=== PATIENT | female | born 1980 | race Two or more races ===

== ENCOUNTER → 2024-03-30 | Outpatient (CLI) | payer BC | END | disposition home or self-care (01) | LOC: XYW 09:53 | PROVIDERS: ATTEND Student in an Organized Health Care Education/Training Program | DX: I51.89 Other ill-defined heart diseases (principal); R06.02 Shortness of breath | CPT/HCPCS: 93306 ==

== ENCOUNTER 2024-07-09 12:27 | Emergency (ER) | payer BC ==
[2024-07-09 13:39] LABS: Urine Bacteria None Seen /hpf (None Seen)
[2024-07-09 13:49] LABS: Basophils # (auto) 0 10 ^3/uL (0-0.2); Basophils % (auto) 0.7 % (0.0-2.0); Eosinophils # (auto) 0.1 10 ^3/uL (0-0.8); Eosinophils % (auto) 1.7 % (0.0-7.0); Hematocrit 39.8 % (36.0-46.0); Hemoglobin 13.5 g/dL (12.2-16.2); Lymphocytes # (auto) 2.3 10 ^3/uL (0.4-5.4); Mean Corpuscular Hemoglobin 31.4 pg (28.0-32.0); Mean Corpuscular Volume 92.6 fL (80.0-100.0); Monocytes # (auto) 0.3 10 ^3/uL (0-1.3); Monocytes % (auto) 6.3 % (0.0-12.0); Neutrophils # (auto) 2.6 10 ^3/uL (1.6-8.6); Neutrophils % (auto) 48.3 % (37.0-80.0); Nucleated Red Blood Cells % 0.1 %; Platelet Count (auto) 197 10^3/uL (140-450); Red Cell Distribution Width 13.7 % (11.8-14.3); White Blood Cell 5.4 10^3/uL (4.4-10.8)
[2024-07-09 14:06] LABS: Chloride 105 mmol/L (98-107); Potassium 4.2 mmol/L (3.5-5.1); Sodium 139 mmol/L (136-145)
[2024-07-09 14:07] LABS: Anion Gap 5 (5-15); Carbon Dioxide 29 mmol/L (20-30)
[2024-07-09 14:08] LABS: Calcium 9.6 mg/dL (8.7-10.4)
[2024-07-09 14:12] LABS: BUN/Creatinine Ratio 17.1 (10.0-20.0); Blood Urea Nitrogen 13 mg/dL (9-23); Glucose 93 mg/dL (74-106)
[2024-07-09 14:14] LABS: Urine Blood Negative /uL (Negative); Urine Clarity Clear (Clear); Urine Color Yellow (Yellow); Urine Protein, UAD Negative (Negative); Urine Urobilinogen Normal (Negative); Urine WBC <1 /hpf (0 - 5); Urine pH 6.5 (5.0-9.0)
[2024-07-09 17:00] VITALS: BP 112/65; PULSE 78; RESP 16; TEMP 98.3; O2SAT 100
== END 2024-07-09 17:08 | disposition home or self-care (01) ==
LOC: ER 12:27
DX: N93.9 Abnormal uterine and vaginal bleeding, unspecified (principal); R10.2 Pelvic and perineal pain; Z90.49 Acquired absence of other specified parts of digestive tract
CPT/HCPCS: 36415; 76830; 76856; 80048; 81001; 84702; 85025; 86850; 86900; 86901

== ENCOUNTER → 2024-08-03 | Outpatient (CLI) | payer BC ==
[2024-08-03 11:48] LABS: Basophils # (auto) 0 10 ^3/uL (0-0.2); Basophils % (auto) 0.6 % (0.0-2.0); Eosinophils # (auto) 0.1 10 ^3/uL (0-0.8); Eosinophils % (auto) 2.6 % (0.0-7.0); Hematocrit 38.5 % (36.0-46.0); Hemoglobin 12.9 g/dL (12.2-16.2); Lymphocytes # (auto) 1.9 10 ^3/uL (0.4-5.4); Lymphocytes % (auto) 39.2 % (10.0-50.0); Mean Corpuscular Hemoglobin 31.6 pg (28.0-32.0); Mean Corpuscular Hgb Conc. 33.5 g/dL (32.0-36.0); Mean Corpuscular Volume 94.5 fL (80.0-100.0); Monocytes # (auto) 0.3 10 ^3/uL (0-1.3); Monocytes % (auto) 6.9 % (0.0-12.0); Neutrophils # (auto) 2.4 10 ^3/uL (1.6-8.6); Neutrophils % (auto) 50.7 % (37.0-80.0); Platelet Count (auto) 213 10^3/uL (140-450); Red Blood Cells 4.07 10^6/uL (4.0-5.20); White Blood Cell 4.8 10^3/uL (4.4-10.8)
[2024-08-03 12:47] LABS: Alanine Aminotransferase 15 U/L (7-40); Alkaline Phosphatase 69 U/L (46-116); Anion Gap 6 (5-15); BUN/Creatinine Ratio 21.5 (10.0-20.0); Beta HCG, Quantitative 0.6 mIU/mL (1.5-4.2); Blood Urea Nitrogen 17 mg/dL (9-23); Calcium 9.6 mg/dL (8.7-10.4); Carbon Dioxide 27 mmol/L (20-31); Chloride 108 mmol/L (98-107); Glucose 86 mg/dL (74-106); Potassium 4.1 mmol/L (3.5-5.1); Sodium 141 mmol/L (136-145)
[2024-08-03 12:48] LABS: Albumin 4.4 g/dL (3.2-4.8); Aspartate Aminotransferase 9 U/L (13-40); Bilirubin, Total 0.3 mg/dL (0.2-1.0)
[2024-08-03 12:50] LABS: Thyroid Stimulating Hormone 1.91 uIU/mL (0.55-4.78)
[2024-08-03 13:14] LABS: Follicle Stimulating Hormone 21.1 IU/L (SEE BELOW); Free T4 (Free Thyroxine) 1.02 ng/dL (0.89-1.76); Leuteinizing Hormone 6.8 IU/L
[2024-08-04 08:07] LABS: Estradiol 66.2 pg/mL (.); Insulin 5.8 uIU/mL (2.6-24.9); Sex Hormone Binding Globulin 66.4 nmol/L (24.6-122.0); Testosterone <3 ng/dL (4-50)
== END | disposition home or self-care (01) ==
LOC: LAB 11:17
PROVIDERS: ATTEND Obstetrics & Gynecology
DX: E28.2 Polycystic ovarian syndrome (principal); Z87.42 Personal history of other diseases of the female genital tract
CPT/HCPCS: 36415; 80053; 82626; 82670; 83001; 83002; 83036; 83525; 84146; 84270; 84402; 84403; 84439; 84443; 84702; 85025

== ENCOUNTER 2024-09-14 09:07 | Day surgery (SDC) | payer BC ==
[2024-09-10 11:12] LABS: Basophils # (auto) 0 10 ^3/uL (0-0.2); Basophils % (auto) 0.5 % (0.0-2.0); Eosinophils # (auto) 0.1 10 ^3/uL (0-0.8); Eosinophils % (auto) 1.7 % (0.0-7.0); Hematocrit 39.3 % (36.0-46.0); Hemoglobin 13.3 g/dL (12.2-16.2); Lymphocytes # (auto) 2.4 10 ^3/uL (0.4-5.4); Lymphocytes % (auto) 47.9 % (10.0-50.0); Mean Corpuscular Hemoglobin 31.2 pg (28.0-32.0); Mean Corpuscular Hgb Conc. 33.7 g/dL (32.0-36.0); Mean Corpuscular Volume 92.5 fL (80.0-100.0); Monocytes # (auto) 0.4 10 ^3/uL (0-1.3); Monocytes % (auto) 7.3 % (0.0-12.0); Neutrophils # (auto) 2.1 10 ^3/uL (1.6-8.6); Neutrophils % (auto) 42.6 % (37.0-80.0); Nucleated Red Blood Cells % 0.2 %; Platelet Count (auto) 245 10^3/uL (140-450); Red Blood Cells 4.25 10^6/uL (4.0-5.20); Red Cell Distribution Width 13.5 % (11.8-14.3)
[2024-09-10 11:34] LABS: INR 0.9 (0.9-1.15); Partial Thromboplastin Time 27.6 SEC (24.5-34.5); Prothrombin Time 9.6 sec (9.3-11.8); Urine Bacteria FEW /hpf (None Seen); Urine Blood Negative /uL (Negative); Urine Clarity Clear (Clear); Urine Color Light-Yellow (Yellow); Urine Protein, UAD Negative (Negative); Urine Specific Gravity 1.023 (1.001-1.035); Urine Urobilinogen Normal (Negative); Urine WBC 1 /hpf (0 - 5); Urine pH 5.5 (5.0-9.0)
[2024-09-10 11:40] LABS: Alanine Aminotransferase 18 U/L (7-40); Albumin 4.3 g/dL (3.2-4.8); Alkaline Phosphatase 77 U/L (46-116); Anion Gap 7 (5-15); Aspartate Aminotransferase 13 U/L (13-40); BUN/Creatinine Ratio 22.4 (10.0-20.0); Blood Urea Nitrogen 15 mg/dL (9-23); Calcium 9.9 mg/dL (8.7-10.4); Carbon Dioxide 27 mmol/L (20-31); Chloride 107 mmol/L (98-107); Glucose 88 mg/dL (74-106); Potassium 4.5 mmol/L (3.5-5.1); Sodium 141 mmol/L (136-145)
[2024-09-10 11:41] LABS: Bilirubin, Total 0.2 mg/dL (0.2-1.0); Total Protein 7.2 g/dL (5.7-8.2)
--- NOTE | 2024-09-11 03:48 | DVHHP ---
ADMIT DATE: 09/14/2024 PREOPERATIVE HISTORY AND PHYSICAL PROPOSED DATE OF SURGERY: 09/14/2024 CHIEF COMPLAINT: Excessive menstrual bleeding. HISTORY OF PRESENT ILLNESS: This is a 44-year-old female. She is nulligravid. Last menstrual period 08/24/2024. Form of control: Vasectomy of her partner. The patient endorses heavy menstrual period associated with clots. Cycles are irregular with bleeding up to 2 weeks. She has tried hormonal treatment and other methods to control bleeding with no success. Pelvic ultrasound shows the uterus 8.8 x 4.3 x 5.1 cm. Grossly unremarkable with endometrial thickness of 1 cm. There is a simple cyst in the uterine fundus. Right ovary is within normal limits. Left ovary not visualized. Next, the patient's Pap smear in 07/2024 is normal with HPV negative. Gonorrhea, chlamydia and Trichomonas tests are negative. The patient's hemoglobin in July is 12.9. She denies any pelvic pain. PAST SURGICAL HISTORY: Cholecystectomy and LEEP biopsy of the cervix. PAST MEDICAL HISTORY: Left knee arthritis, history of paroxysmal SVT, hyperlipidemia. MEDICATIONS: None. ALLERGIES: No known drug allergies. SOCIAL HISTORY: Negative. No history of tobacco, alcohol or illicit drug use. FAMILY HISTORY: Negative and noncontributory. REVIEW OF SYSTEMS: Fourteen point review of systems is negative as otherwise stated in the history of present illness. PHYSICAL EXAMINATION: VITAL SIGNS: The patient is afebrile. Vital signs are stable. GENERAL: She is alert, in no acute distress, appears her stated age. NECK: Supple, without any palpable thyromegaly. HEENT: Within normal limits. CARDIOVASCULAR: Regular rate and rhythm, normal S1, S2. No gallops or murmurs. PULMONARY: Clear to auscultation bilaterally. ABDOMEN: Soft, nontender, no masses. EXTREMITIES: Without cyanosis or edema. PELVIC: Shows normal external female genitalia. Cervix is nulliparous with no lesions. Uterus is small, mobile with no palpable adnexal masses. Nontender. ASSESSMENT: * Excessive menstrual periods. * Irregular menstrual cycles. PLAN: Multiple therapeutic options were discussed with the patient. She has exhausted medical therapy. Therefore, she has requested the following procedures performed: Pelvic exam under anesthesia, operative hysteroscopy, uterine dilatation and curettage, NovaSure endometrial ablation. The risks, benefits, alternatives and expectations to the procedure have been discussed with the patient and informed consent has been obtained. Risks of pain, bleeding, infection, injury to adjacent organs discussed with the patient. Risk of blood transfusion discussed with the patient. Risk of uterine perforation discussed with the patient. No guarantee given for relief of pain. No guarantees given for amenorrhea. Furthermore, patient understands is not recommended after endometrial ablation and this procedure is not a form of contraception. The patient verbalized understanding of all risks and agrees to proceed with planned procedure. DO ROQUE Rojas TID: [id number] RECEIPT: [id number] [facility]
[~2024-09-14] VITALS: Ht 152.4 cm; Wt 62.6 kg
[~2024-09-14 09:07] MED LIST: CYCL-839 PO; DexAMETHasone SOD PHOS 10MG/1ML VIAL INJ ONE; GABA-1250 PO; GLYCOPYRROLATE 0.2 MG/ML 1ML VIAL ONE; HYDR1TAB97 PO; KETOROLAC TROMETH 30 MG/ML 1ML VIAL ONE; LIDOCAINE 1% INJ PF 5ML AMP ONE; ONDANSETRON HCL 4 MG/2 ML VIAL ONE; PROPOFOL 10 MG/ML 20 ML IV ONE
[2024-09-14] MEDS ORDERED: ceFAZolin 2 GM/D5W100ml 100 ML IV ONE (09:33)
[2024-09-14] MEDS: GABAPENTIN 400 MG CAP PO ONE (09:45)
[2024-09-14] MEDS: ACETAMINOPHEN IV 1000 MG/100ML (10MG/ML) IV ONE (09:45)
[2024-09-14] MEDS: CELECOXIB 100 MG CAP PO ONE (09:45)
[2024-09-14] MEDS ORDERED: PROPOFOL 10 MG/ML 20 ML IV ONE ×2 (10:59→11:23)
[2024-09-14] MEDS ORDERED: fentaNYL CITRATE 100 MCG/2 ML VL ONE (11:29)
[2024-09-14 11:37] VITALS: PULSE 65; RESP 12; TEMP 97.2; O2SAT 100
[2024-09-14] MEDS ORDERED: IBUP-1455 PO (11:44)
[2024-09-14] MEDS ORDERED: hydrALAZINE HCL 20 MG/ML VL IV PRN (11:45)
[2024-09-14] MEDS ORDERED: ONDANSETRON HCL 4 MG/2 ML VIAL IV PRN (11:45)
[2024-09-14] MEDS ORDERED: fentaNYL CITRATE 100 MCG/2 ML VL IV PRN (11:45)
[2024-09-14] MEDS ORDERED: NALOXONE HCL 0.4 MG/ML VIAL IV PRN (11:45)
[2024-09-14] MEDS ORDERED: ePHEDrine SULFATE 50 MG/ML AMP IV PRN (11:45)
[2024-09-14] MEDS ORDERED: FLUMAZENIL 0.1 MG/ML INJ 10ML MDV IV PRN (11:45)
[2024-09-14] MEDS: HYDROmorphone HCL 2 MG/ML VL/or syr IV PRN (11:56)
--- NOTE | 2024-09-14 12:15 | DVHOP ---
DATE OF SURGERY: 09/14/2024 PREOPERATIVE DIAGNOSES: * Excessive menstrual cycles. * Irregular menstruation. POSTOPERATIVE DIAGNOSES: * Excessive menstrual cycles. * Irregular menstruation. PROCEDURES PERFORMED: * Pelvic exam under anesthesia. * Diagnostic hysteroscopy. * Uterine dilation and curettage. * NovaSure endometrial ablation. SURGEON: Huy Jones DO GENOMICS SCIENTIST: None. TYPE OF ANESTHESIA: General endotracheal. ANESTHESIOLOGIST: Alex Sanchez CRNA DESCRIPTION OF FINDINGS: Normal size uterus. Nulliparous cervix. Endometrial cavity revealed proliferative type endometrium with no gross lesions, no polyps, fibroids, or evidence of malignancy. Bilateral tubal ostia successfully seen on hysteroscopy. Satisfactory complete ablation of the endometrial cavity. TECHNICAL PROCEDURE: After informed consent was obtained, the patient was taken to the operating room where she underwent smooth induction with general anesthesia. The patient was placed in dorsal lithotomy position in Chalino stirrups. The vagina and perineum were thoroughly prepped and the patient sterilely draped in usual fashion. A pelvic exam was then performed under anesthesia with the above-noted findings. A weighted speculum was placed into the patient's vagina. The anterior lip of the cervix was grasped with a single-tooth tenaculum. Uterine cavity sounded to 9 cm. The uterine cervix was gently dilated with Bass dilators to accommodate a 6 mm diagnostic hysteroscope. A diagnostic hysteroscopy was performed using normal saline as the distention medium. The findings of the hysteroscopy are described above. There was benign-appearing endometrial tissue. The hysteroscope was removed. A sharp uterine curettage was performed. Endometrial curettings were collected on Telfa pad and submitted to pathology. Next, the NovaSure device was inserted into the endometrial cavity per standard protocol. We entered the cervical length and width of the uterine cavity into the generator machine. A 50-second endometrial ablation cycle was performed. At the completion of the cycle, the instrument was removed from the endometrial cavity. A second pass with the hysteroscope revealed that the endometrial cavity was successfully ablated greater than 80%-90% of the cavity. The hysteroscope was removed under direct visualization. There was minimal bleeding from the cervix at the tenaculum site. A 3-0 chromic was used to stitch the cervix for hemostasis. At this point, all instrumentation was removed from the patient's vagina. The patient was taken out of lithotomy position, awakened, and taken to recovery room in stable condition. INTRAOPERATIVE COMPLICATIONS: None. ESTIMATED BLOOD LOSS: Less than 15 mL. POSTOPERATIVE CONDITION: Stable. SPECIMENS: Endometrial curettings. Photodocumentation also obtained. DO ROQUE Rojas/JULIUS TID: [id number] RECEIPT: [id number]
[2024-09-14] MEDS: oxyCODONE HCL 5MG TAB PO PRN (12:43)
[2024-09-14 12:52] VITALS: BP 104/68; PULSE 70; RESP 12; O2SAT 98
== END 2024-09-14 13:07 | disposition home or self-care (01) ==
LOC: SUR 09:07
PROVIDERS: ATTEND Obstetrics & Gynecology
DX: N92.0 Excessive and frequent menstruation with regular cycle (principal); R10.2 Pelvic and perineal pain; N93.9 Abnormal uterine and vaginal bleeding, unspecified; I47.10 Supraventricular tachycardia, unspecified; I49.3 Ventricular premature depolarization; E78.5 Hyperlipidemia, unspecified; K21.9 Gastro-esophageal reflux disease without esophagitis; E66.3 Overweight; Z68.27 Body mass index [BMI] 27.0-27.9, adult; Z79.899 Other long term (current) drug therapy; Z90.49 Acquired absence of other specified parts of digestive tract
CPT/HCPCS: 36415; 58563; 80053; 81001; 81025; 84702; 85025; 85610; 85730; 86850; 86900; 86901; 88305; J1100; J1171; J1885; J2405; J2704; J0131

== ENCOUNTER → 2025-02-15 | Outpatient (CLI) | payer BC ==
[~2025-02-15] MED LIST changes: -DexAMETHasone SOD PHOS 10MG/1ML VIAL INJ ONE; -GLYCOPYRROLATE 0.2 MG/ML 1ML VIAL ONE; +IBUP-1455 PO; -KETOROLAC TROMETH 30 MG/ML 1ML VIAL ONE; -LIDOCAINE 1% INJ PF 5ML AMP ONE; -ONDANSETRON HCL 4 MG/2 ML VIAL ONE; -PROPOFOL 10 MG/ML 20 ML IV ONE
[2025-02-15 16:05] LABS: Urine Bacteria None Seen /hpf (None Seen)
[2025-02-15 16:10] LABS: Basophils # (auto) 0 10 ^3/uL (0-0.2); Basophils % (auto) 0.4 % (0.0-2.0); Eosinophils # (auto) 0 10 ^3/uL (0-0.8); Eosinophils % (auto) 0.7 % (0.0-7.0); Hematocrit 38.9 % (36.0-46.0); Hemoglobin 13.1 g/dL (12.2-16.2); Lymphocytes # (auto) 1.8 10 ^3/uL (0.4-5.4); Lymphocytes % (auto) 26.2 % (10.0-50.0); Mean Corpuscular Hemoglobin 31.2 pg (28.0-32.0); Mean Corpuscular Hgb Conc. 33.6 g/dL (32.0-36.0); Mean Corpuscular Volume 92.8 fL (80.0-100.0); Monocytes # (auto) 0.5 10 ^3/uL (0-1.3); Monocytes % (auto) 6.7 % (0.0-12.0); Neutrophils # (auto) 4.6 10 ^3/uL (1.6-8.6); Platelet Count (auto) 188 10^3/uL (140-450); Red Blood Cells 4.19 10^6/uL (4.0-5.20); Red Cell Distribution Width 14.2 % (11.8-14.3); White Blood Cell 6.9 10^3/uL (4.4-10.8)
[2025-02-15 16:31] LABS: Urine Blood Negative /uL (Negative); Urine Clarity Clear (Clear); Urine Color Light-Yellow (Yellow); Urine Protein, UAD Negative (Negative); Urine Specific Gravity 1.022 (1.001-1.035); Urine Squamous Epithelial Cell FEW /hpf (<5); Urine Urobilinogen Normal (Negative); Urine WBC < 1 /HPF (0-5); Urine pH 6.5 (5.0-9.0)
[2025-02-15 17:04] LABS: Alanine Aminotransferase 22 U/L (7-40); Albumin 4.2 g/dL (3.2-4.8); Alkaline Phosphatase 58 U/L (46-116); Anion Gap 7 (5-15); Aspartate Aminotransferase 14 U/L (13-40); BUN/Creatinine Ratio 27.9 (10.0-20.0); Bilirubin, Total 0.4 mg/dL (0.2-1.0); Blood Urea Nitrogen 19 mg/dL (9-23); Calcium 9.7 mg/dL (8.7-10.4); Carbon Dioxide 27 mmol/L (20-31); Chloride 106 mmol/L (98-107); Glucose 88 mg/dL (74-106); Potassium 4.4 mmol/L (3.5-5.1); Sodium 140 mmol/L (136-145); Total Protein 6.6 g/dL (5.7-8.2)
== END | disposition home or self-care (01) ==
LOC: LAB 15:53
PROVIDERS: ATTEND Obstetrics & Gynecology
DX: R10.2 Pelvic and perineal pain (principal)
CPT/HCPCS: 36415; 80053; 81001; 84702; 85025; 87086

== ENCOUNTER 2025-03-26 15:05 | Outpatient (CLI) | payer BC ==
[2025-03-26 15:21] LABS: Basophils # (auto) 0 10 ^3/uL (0-0.2); Basophils % (auto) 0.5 % (0.0-2.0); Eosinophils # (auto) 0.1 10 ^3/uL (0-0.8); Hematocrit 40.2 % (36.0-46.0); Hemoglobin 13.5 g/dL (12.2-16.2); Lymphocytes # (auto) 2.3 10 ^3/uL (0.4-5.4); Lymphocytes % (auto) 35.4 % (10.0-50.0); Mean Corpuscular Hemoglobin 31.2 pg (28.0-32.0); Mean Corpuscular Hgb Conc. 33.5 g/dL (32.0-36.0); Mean Corpuscular Volume 93.1 fL (80.0-100.0); Monocytes # (auto) 0.4 10 ^3/uL (0-1.3); Monocytes % (auto) 5.9 % (0.0-12.0); Neutrophils # (auto) 3.7 10 ^3/uL (1.6-8.6); Neutrophils % (auto) 57.2 % (37.0-80.0); Platelet Count (auto) 174 10^3/uL (140-450); Red Blood Cells 4.32 10^6/uL (4.0-5.20); Red Cell Distribution Width 14.1 % (11.8-14.3); White Blood Cell 6.5 10^3/uL (4.4-10.8)
[2025-03-26 15:47] LABS: Alanine Aminotransferase 17 U/L (7-40); Albumin 4.3 g/dL (3.2-4.8); Alkaline Phosphatase 70 U/L (46-116); Anion Gap 6 (5-15); Aspartate Aminotransferase 11 U/L (13-40); BUN/Creatinine Ratio 18.2 (10.0-20.0); Blood Urea Nitrogen 14 mg/dL (9-23); Calcium 9.7 mg/dL (8.7-10.4); Carbon Dioxide 27 mmol/L (20-31); Chloride 107 mmol/L (98-107); Cholesterol 145 mg/dL (< 200); Glucose 85 mg/dL (74-106); LDL Cholesterol 73 mg/dL (< 100); Potassium 4.4 mmol/L (3.5-5.1); Sodium 140 mmol/L (136-145); Total Protein 6.7 g/dL (5.7-8.2); Triglycerides 70 mg/dL (< 150)
[2025-03-26 15:48] LABS: Bilirubin, Total 0.3 mg/dL (0.2-1.0)
[2025-03-26 15:49] LABS: HDL Cholesterol 65 mg/dL (40-59)
== END 2025-03-26 17:00 | disposition home or self-care (01) ==
LOC: LAB 15:05
PROVIDERS: ATTEND Nurse Practitioner Family
DX: I49.3 Ventricular premature depolarization (principal); Z00.01 Encounter for general adult medical examination with abnormal findings; Z79.899 Other long term (current) drug therapy
CPT/HCPCS: 36415; 80053; 80061; 84443; 85025

== ENCOUNTER 2025-05-06 07:36 | Outpatient (CLI) | payer BC ==
[2025-05-06 08:08] LABS: Hematocrit 39.6 % (36.0-46.0); Hemoglobin 13.4 g/dL (12.2-16.2); Mean Corpuscular Hemoglobin 31.5 pg (28.0-32.0); Mean Corpuscular Volume 93.2 fL (80.0-100.0); Nucleated Red Blood Cells % 0.1 %
[2025-05-06 08:53] LABS: Alanine Aminotransferase 15 U/L (7-40); Albumin 4.1 g/dL (3.2-4.8); Alkaline Phosphatase 53 U/L (46-116); Anion Gap 8 (5-15); BUN/Creatinine Ratio 13.1 (10.0-20.0); Blood Urea Nitrogen 11 mg/dL (9-23); Calcium 9.9 mg/dL (8.7-10.4); Carbon Dioxide 28 mmol/L (20-31); Cholesterol 150 mg/dL (< 200); Glucose 81 mg/dL (74-106); Potassium 4.0 mmol/L (3.5-5.1); Sodium 143 mmol/L (136-145); Total Protein 6.4 g/dL (5.7-8.2); Triglycerides 54 mg/dL (< 150)
[2025-05-06 08:54] LABS: Bilirubin, Total 0.6 mg/dL (0.2-1.0)
[2025-05-06 08:56] LABS: Chloride 107 mmol/L (98-107); HDL Cholesterol 71 mg/dL (40-59)
== END 2025-05-06 17:00 | disposition home or self-care (01) ==
LOC: LAB 07:36
PROVIDERS: ATTEND Nurse Practitioner Family
DX: I10 Essential (primary) hypertension (principal); E03.9 Hypothyroidism, unspecified; Z00.01 Encounter for general adult medical examination with abnormal findings
CPT/HCPCS: 36415; 80053; 80061; 84443; 85025

== ENCOUNTER → 2025-07-30 | Day surgery (SDC) | payer BC ==
[2025-07-23 14:54] LABS: Hematocrit 38.7 % (36.0-46.0); Hemoglobin 13.1 g/dL (12.2-16.2); Mean Corpuscular Hemoglobin 31.5 pg (28.0-32.0); Mean Corpuscular Volume 92.9 fL (80.0-100.0); Nucleated Red Blood Cells % 0.0 %
[2025-07-23 14:56] LABS: Urine Protein, UAD Negative (Negative)
[2025-07-23 15:03] LABS: INR 0.98 (0.9-1.15); Partial Thromboplastin Time 26.7 SEC (24.5-34.5); Prothrombin Time 10.4 sec (9.3-11.8)
[2025-07-23 15:32] LABS: Alanine Aminotransferase 22 U/L (7-40); Alkaline Phosphatase 62 U/L (46-116); Anion Gap 4 (5-15); BUN/Creatinine Ratio 15.8 (10.0-20.0); Blood Urea Nitrogen 12 mg/dL (9-23); Calcium 8.8 mg/dL (8.7-10.4); Chloride 104 mmol/L (98-107); Glucose 86 mg/dL (74-106); Potassium 4.3 mmol/L (3.5-5.1); Sodium 140 mmol/L (136-145); Total Protein 6.7 g/dL (5.7-8.2)
[2025-07-23 15:33] LABS: Albumin 4.1 g/dL (3.2-4.8); Bilirubin, Total 0.3 mg/dL (0.2-1.0)
[2025-07-23 15:35] LABS: Carbon Dioxide 32 mmol/L (20-31)
[~2025-07-30] VITALS: Ht 165.1 cm; Wt 63.5 kg
[~2025-07-30] MED LIST changes: +ASPI-498 OR; +HYDROmorphone HCL 2 MG/ML VL/or syr IV PRN; +HYDROmorphone HCL 2 MG/ML VL/or syr ONE; +IBUP-1454 PO; +KETOROLAC TROMETH 30 MG/ML 1ML VIAL IV ONE; +METOCLOPRAMIDE HCL 5MG/ml INJ 2ml VIAL IV PRN; +METOCLOPRAMIDE HCL 5MG/ml INJ 2ml VIAL ONE; +MIDAZOLAM HCL 2MG/2ML 2ml VIAL (1mg/ml) ONE; +ONDANSETRON HCL 4 MG/2 ML VIAL IV PRN; +ONDANSETRON HCL 4 MG/2 ML VIAL ONE; +PROPOFOL 10 MG/ML 20 ML IV ONE; +ceFAZolin 2 GM/D5W50ml 50 ML IV ONE; +fentaNYL CITRATE 100 MCG/2 ML VL ONE
[2025-07-30] MEDS: BUPIVACAINE 0.5% P/F INJ 10 ML VIAL ONE (12:15)
--- NOTE | 2025-07-30 12:17 | DVHOP2 ---
Operative Report - 2 Report Details Date: 07/30/25 Preop Diagnosis: Left knee medial meniscus tear Postop Diagnosis: Left knee medial meniscus tear with lateral tibial plateau high-grade chondromalacia Surgeon: Maria Ines Ramirez MD Anesthesiologist: Yahir corbett CRNA Anesthesia: General Consent: The patient was informed of the risks and benefits of the procedure. These include but are not limited to complications of anesthesia, postoperative infection, incomplete relief of symptoms, recurrence of symptoms, damage to blood vessels, nerves and tendons, deep venous thrombosis, pulmonary embolism and possible need for repeat surgery in the future. Complications: None Estimated Blood Loss: Less than 5 mL Indications for Surgery: The patient is a 45-year-old female who presented to the clinic with a history of knee pain. Clinical and radiological evaluation demonstrated medial meniscus flap tear. Nonoperative and operative management options were discussed. Surgery in the form of knee arthroscopy with partial meniscectomy versus repair was indicated as the patient had failed conservative management. Benefits, risks and treatment alternatives were discussed. Specific complications of the surgery such as neurovascular injury, infection, arthrofibrosis, loss of limb or life were discussed. She decided to proceed with the surgical option. Name of Procedure Performed Left knee arthroscopy with partial medial meniscectomy, chondroplasty of the lateral tibial plateau with thermal ablation Procedure Details Procedure Details: The patient was identified in the preoperative holding area and the surgical site was marked. The consent was verified. The patient was brought into the operating room and placed supine on the operating table. General anesthesia was administered. A tourniquet was applied over the proximal thigh. All the bony prominences were appropriately padded. The knee was positioned appropriately. The extremity was now prepped and draped in the usual sterile manner. A timeout was called out to confirm the identity of the patient, the nature of surgery, the site of surgery, the availability of implants and x-rays and allergies to medications. A standard anterolateral portal was established. A 30 degree scope was inserted. A standard anteromedial portal was established, a probe was inserted and the findings are as follows 1. Complex meniscus tear with flap component, partial root tear 2. Intact ACL and PCL 3. Intact medial compartment cartilage 4. Intact lateral meniscus and grade II/III tibial plateau chondromalacia 5. Intact patellofemoral joint with normal bio kinematics The medial meniscus tear with a flap tear. This was in the red-white and white- white zone. A partial meniscectomy was initially performed as it was a complex tear with multiple tear lines. It was noted that there was good amount of meniscus tissue remaining, approximately 5 mm. This was considered to be acceptable. Repair was not possible due to the significant tissue degeneration and damage. There was partial root tear, however the root was very stable and did not need root repair. The lateral tibial plateau was grade II/III chondromalacia. Significant fibrillation was noted. This was a large area in the weight-bearing area appr oximately 1 cm. Chondroplasty was performed with a thermal ablation Wand. Excellent stabilization was noted. Irrigation was given. The skin incisions were closed with 3-0 Monocryl. Sterile dressings applied. The knee was placed in a hinged [id number] brace set at 0-100 degrees Condition Good Disposition Home MARIA INES RAMIREZ MD Jul 30, 2025 12:17
[2025-07-30 12:21] VITALS: PULSE 69; RESP 14; TEMP 97.6; O2SAT 99
[2025-07-30 12:26] VITALS: PULSE 65
[2025-07-30 13:36] VITALS: BP 90/51; RESP 12; O2SAT 100
== END | disposition home or self-care (01) ==
LOC: SUR 08:13
PROVIDERS: ATTEND Orthopaedic Surgery Sports Medicine
DX: S83.232A Complex tear of medial meniscus, current injury, left knee, initial encounter (principal); X58.XXXA Exposure to other specified factors, initial encounter; Y93.89 Activity, other specified; Y92.89 Other specified places as the place of occurrence of the external cause; Y99.8 Other external cause status; G89.29 Other chronic pain; K21.9 Gastro-esophageal reflux disease without esophagitis
CPT/HCPCS: 29881; 36415; 80053; 81001; 81025; 85025; 85610; 85730; J0690; J1100; J1171; J2250; J2405; J2704; J2765; J3010; J3490; J7120

== ENCOUNTER 2025-08-30 09:27 | Outpatient (CLI) | payer BC ==
[~2025-08-30 09:27] MED LIST changes: -HYDROmorphone HCL 2 MG/ML VL/or syr IV PRN; -HYDROmorphone HCL 2 MG/ML VL/or syr ONE; -KETOROLAC TROMETH 30 MG/ML 1ML VIAL IV ONE; -METOCLOPRAMIDE HCL 5MG/ml INJ 2ml VIAL IV PRN; -METOCLOPRAMIDE HCL 5MG/ml INJ 2ml VIAL ONE; -MIDAZOLAM HCL 2MG/2ML 2ml VIAL (1mg/ml) ONE; -ONDANSETRON HCL 4 MG/2 ML VIAL IV PRN; -ONDANSETRON HCL 4 MG/2 ML VIAL ONE; -PROPOFOL 10 MG/ML 20 ML IV ONE; -ceFAZolin 2 GM/D5W50ml 50 ML IV ONE; -fentaNYL CITRATE 100 MCG/2 ML VL ONE
== END 2025-08-30 17:00 | disposition home or self-care (01) ==
LOC: LAB 09:27
PROVIDERS: ATTEND Nurse Practitioner Family
DX: T78.40XA Allergy, unspecified, initial encounter (principal); X58.XXXA Exposure to other specified factors, initial encounter
CPT/HCPCS: 86003